=== PATIENT | female | born 1975 | race African-American/Black ===

== ENCOUNTER 2023-02-27 13:51 | Outpatient (AMB) | payer OTHER, SELFPAY ==
--- NOTE | 2023-02-27 14:24 | A.SPINEOV_ITS ---
Intake Intake Visit Reasons: shoulder, back pain & bilateral hand numbness Intake Note: Ms. Rodriguez is here today c/o shoulder and back pain w/bilateral hand numbness. MRI done @ [facility]/brought disc. Surgical Instrument Maker Required: No Assessment & Plan Assessment & Plan (1) Bilateral hand numbness: Code(s): R20.0 - Anesthesia of skin Plan Sofia is a pleasant 48-year-old female who comes in today with a chief complaint of posterior neck pain and bilateral hand numbness that is worse at night. She reports that her hand numbness started a few months ago in his gradually been increasing. She reports no inciting incident. She states that when her wrists are folded inward the numbness increases and that when she lies her hands down on her bed it decreases. Of note she has a pertinent medical history of prior C4-5, C5-6 ACDF completed in 2020. She reports that since her surgery she has had persistent posterior neck pain, but reports that this bilateral hand numbness is new. She reports that she recently was evaluated by her primary care physician as well, who ordered her an EMG. She states that she is currently prescribed Robaxin, ibuprofen and baclofen and does not feel that these medications have been helpful for her. She reports that she was tested for MS via a spinal tap in 2020 which was negative. She also was tested for Lyme disease via a titer test also done in 2020 which was negative. PMH: History of previous C5-6 ACDF. Asthma, depression, anxiety. Social hx: Patient does not smoke, reports no substance use. Medications: The patient reports that she currently takes Robaxin, ibuprofen, baclofen, escitalopram. Allergies: NKDA. Physical exam: The patient has 5/5 strength in her bilateral lower extremities. She has 3/5 strength in her shoulders / deltoids, 4/5 strength in her hand sand sifter bilaterally, and 5/5 strength elsewhere in her upper extremities. She reports sensational changes in her bilateral hands (numbness). She denies radicular symptoms in the upper extremities. Some pain to direct palpation of the cervical spine. No pain to palpation over the lumbar or thoracic spine. She is able to ambulate well, rises from a seated position without difficulty. (-) Don's, (-) Tinel's (wrist & elbow), (-) Phalen's, (-) Clonus. Imaging review: MRI of the cervical spine completed in November of this year showed no significant changes from previous compared imaging. She continues to have cord signal change noted at C 4-5. She does not appear to have any significant central canal stenosis or foraminal stenosis. Impression: Sofia is a pleasant 48-year-old female who comes in today with a chief complaint of bilateral hand numbness that began without inciting incident a few months ago. She states that this numbness is worse at night and can be alleviated by straightening out her hands. Her story and symptoms are classic for that of carpal tunnel syndrome. She was recently evaluated for this by her primary care provider who ordered her an EMG. She did not show a positive Tinel sign or Phalen's on exam, but I still believe a EMG could be extremely useful to rule in a diagnosis of carpal tunnel syndrome. She was advised to follow through with her EMG appointment in April that her primary care provider made her. After reviewing her he EMG with her primary care she can call our office and inform us of the EMG findings, and make a follow-up appointment. The total time spent with this visit with this patient was 45 minutes reviewing history, physical exam, MRI imaging review, and implementation of treatment plan or further diagnostic testing Pedro Hinton MD,PhD [facility] Coding Level of Care Code New Pt Level 4 (23528) Diagnoses Bilateral hand numbness R20.0
== END 2023-02-27 15:02 | disposition home or self-care (01) ==
PROVIDERS: Visit Provider Physician Assistant
DX: R20.0 Anesthesia of skin (principal)
CPT/HCPCS: 99204

== ENCOUNTER → 2023-02-27 13:51 | Outpatient (BNVA) | payer OTHER, SELFPAY | PROVIDERS: Visit Provider Physician Assistant | DX: R20.0 Anesthesia of skin (principal) | CPT/HCPCS: 99202 ==